=== PATIENT | female | born 1935 | race Caucasian/White ===

== ENCOUNTER 2021-02-10 21:32 | Inpatient (IN) | payer OTHER, MEDICARE ==
[~2021-02-10] VITALS: Ht 165.1 cm; Wt 108.6 kg
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
[2021-02-10 21:45] VITALS: BP 115/58
[2021-02-10 22:04] LABS: ABSOLUTE NEUTROPHILS 13.8 thou/uL (1.4-8.2); BASOPHILS 0.8 % (0.0-2.0); EOSINOPHILS 1.3 % (0.0-3.0); HEMATOCRIT 35.2 % (37.0-47.0); HEMOGLOBIN 11.2 gm/dL (12.0-15.0); LYMPHOCYTES 5.4 % (24.0-44.0); MCH 27.1 pg (26.0-34.0); MCHC 31.9 g/dL (28.0-37.0); MCV 84.7 fL (80.0-100.0); MONOCYTES 7.9 % (1.0-8.0); PLATELET COUNT 444 thou/uL (150-400); POLYS 84.6 % (36.0-66.0); RBC 4.16 mil/uL (4.20-5.00); RDW 15.3 % (10.5-14.5); WBC 16.3 thou/uL (4.0-11.0)
[2021-02-10 22:21] LABS: CALCIUM 9.2 mg/dL (8.5-10.1); CREATININE 2.3 mg/dL (0.6-1.0); POTASSIUM 4.5 mmol/L (3.5-5.1)
[2021-02-10 22:27] LABS: ALBUMIN 2.1 g/dL (3.4-5.0); MAGNESIUM 2.3 mg/dL (1.8-2.4); TOTAL BILIRUBIN 0.3 mg/dL (0.2-1.0); TOTAL PROTEIN 7.3 g/dL (6.4-8.2)
[2021-02-11] MEDS ORDERED: NEUPRO1 EACH TRANSDERM (00:22)
[2021-02-11] MEDS ORDERED: ROPINIROLE HCL0.5 MG PO (00:23)
[2021-02-11] MEDS ORDERED: RESTORIL15 M1 PO (00:23)
[2021-02-11] MEDS ORDERED: VALSARTAN40 MG PO (00:24)
--- NOTE | 2021-02-11 06:08 | NUR ---
LAB IN ROOM TO DRAW BLOOD RN TURNED OFF PUMP. WHEN RN WHEN TO REASSES PT NOTED SKIN AROUND AREA OF LAB STICK TO BE RED HARD AND WHEN GAUZE REMOVED SITE IS LEAKING. IV FLUIDS IN DISTAL ARM STOPPED AND COMPRESSIVE DRESSING PLACED. WILL MONITOR ARM.
[2021-02-11 06:48] LABS: HEMATOCRIT 31.9 % (37.0-47.0); HEMOGLOBIN 10.2 gm/dL (12.0-15.0); MCH 27.6 pg (26.0-34.0); MCV 86.2 fL (80.0-100.0); RBC 3.7 mil/uL (4.20-5.00); RDW 15.6 % (10.5-14.5)
[2021-02-11 06:50] LABS: CREATININE 2.1 mg/dL (0.6-1.0); POTASSIUM 4.1 mmol/L (3.5-5.1)
--- NOTE | 2021-02-11 07:10 | EKG ---
[address] [place] [address] ELECTROCARDIOGRAM REPORT Name: MIGUEL LINN Room #: 170-3 ADM IN M.R.#: [id number] Admission: 02/11/21 Attend Phys: Antony Anaya MD Discharge: Date of : 36 Report #: [id number] 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 : 1935 Requested By: Jayant Rowe Order Number: [id number] MD: Mahendra Wilson Measurements Intervals [place] Rate: 105 P: DE: QRS: -21 QRSD: 173 T: 36 QT: 325 QTc: 430 Interpretive Statements Artifact Extreme tachycardia with wide complex, no further rhythm analysis attempted No previous ECG available for comparison Electronically Signed On 02-11-2021 7:10:30 CDT by Mahendra Wilson [email or web address] <ELECTRONICALLY SIGNED> By: Mahendra Wilson MD, [facility] 02/11/21 0710 2219 2219 Mahendra Wilson MD, FACC /EPI
[2021-02-11 13:27] LABS: URINE BILIRUBIN NEGATIVE (Negative); URINE BLOOD NEGATIVE (Negative); URINE CLARITY CLEAR; URINE COLOR YELLOW; URINE GLUCOSE-RANDOM* NEGATIVE (Negative); URINE KETONES NEGATIVE (Negative); URINE NITRITE-REFLEX NEGATIVE (Negative); URINE PROTEIN (DIPSTICK) NEGATIVE (Negative); URINE UROBILINOGEN 0.2 E.U./dl (0.2-1.0)
[2021-02-11 13:28] LABS: URINE LEUKOCYTES-REFLEX 1+ (Negative)
[2021-02-11 13:42] LABS: MUCUS 4-6 Moderate strn/LPF (None Seen); SQUAMOUS 4-10 Moderate /LPF (0-3); WBC CLUMPS Few (None Seen)
[2021-02-11 13:43] LABS: CASTS None Seen /LPF (None Seen); URINE RBC 0-2 Rare /HPF (0-2); URINE WBC-REFLEX 6-15 Few /HPF (0-5)
[2021-02-11 13:44] LABS: CRYSTALS None Seen /LPF (None Seen)
[2021-02-11 14:00] VITALS: BP 80/50
[2021-02-11 17:34] VITALS: BP 108/58
[2021-02-11 18:15] VITALS: BP 97/46
[2021-02-11 19:48] VITALS: BP 93/39
--- NOTE | 2021-02-11 22:30 | NUR ---
Pt. was brought up from the emergency room around 1800. She is currently awake up in the bed watching television. Admission assessment and history is completed. She does have a large coccyx wound (see poc and picture in chart). Pt. offers no c/o pain. Turned and repostioned. Bed alarm is on.
--- NOTE | 2021-02-12 05:07 | NUR ---
Pt. rested quietly at intervals during the night when checked on during frequent rounds. No loose stools during the shift. She offers no c/o pain. Bed alarm is on.
[2021-02-12 05:40] VITALS: BP 115/62
--- NOTE | 2021-02-12 07:04 | EKG ---
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 : 1935 Requested By: Robi Jorgensen Order Number: [id number] MD: Mahendra Wilson Measurements Intervals [place] Rate: 106 P: DE: QRS: 17 QRSD: 165 T: 19 QT: 322 QTc: 428 Interpretive Statements Artifacg, suspect Atrial fibrillation Paired ventricular premature complexes Probable left ventricular hypertrophy Baseline wander in lead(s) I,III,aVR,aVL,V2 No previous ECG available for comparison Electronically Signed On 02-12-2021 7:04:14 CDT by Mahendra Wilson [email or web address] <ELECTRONICALLY SIGNED> By: Mahendra Wilson MD, [facility] 02/12/21703 10 10 Mahendra Wilson MD, [facility] /EPI
[2021-02-12 07:18] VITALS: BP 119/56
[2021-02-12 11:56] VITALS: BP 94/54
--- NOTE | 2021-02-12 13:37 | NUR ---
PT ADMITTED RELATED TO DIARRHEA AND SEPSIS. CM REVIEWED CHART AND SPOKE WITH CARE TEAM. CM MET WITH PT AT BEDSIDE THIS DAY. PT APPEARED TO BE A&O X4. CM ROLE INTRODUCED. PT INDICATED THAT SHE RESIDES AT [facility]. PT INDICATED THAT SHE USES A WC FOR MOBILITY AND HAD BEEN ABLE TO TRANSFER HER SELF UP UNTIL 2-3 DAYS PRIOR TO ADMISSION. PT INDICATED NO HH OR SKILLED HX. PT INDICATED THAT SHE SLEEPS IN HER RECLINER. PT'S DTR JEANETH IS HER CONTACT. CM FOLLOWING REGARDING DC PLANNING. CARE TEAM INDICATED THAT PT WILL BE HERE OVER WEEKEND. PT ON IV VANC/ZOSYN/FLAGYL.
[2021-02-12 14:25] VITALS: BP 116/76
[2021-02-12 16:55] VITALS: BP 113/64
--- NOTE | 2021-02-12 18:10 | NUR ---
ASSUMED CARE OF PATIENT AT SHIFT CHANGE. ASSESSMENT CHARTED. MEDICATIONS ADMINISTERED PER EMAR. VSS. PATIENT IS ALERT AND ORIENTED BUT IRRITABLE. C/O PAIN IN LOWER EXTREMITIES; STATES SHE NEEDS TO TAKE HER RLS MEDICATION. PROVIDER AWARE AND PUT IN ORDERS ACCORDINGLY. WOUND CARE PROVIDERS ROUNDED ON THIS PATIENT AND STARTED ORDERS; WOUND CARE COMPLETED. ONETIME DOSE OF PAIN SHOT ADMINISTERED PLUS PRN Q4 HOUR DOSE ADMINISTERED W NO RELIEF NOTED PATIENT CONTINUES TO CRY OUT IN PAIN. PROVIDER NOTIFIED. PATIENT APPEARING TO HAVE AN ANXIETY ATTACK NEAR END OF SHIFT; COMFORTED BY THERAPEUTIC TOUCH AND REASSURANCE. PATIENT BEING REPOSITIONED EVERY 2 HOURS TOLERATED. PRAFO BOOTS ORDERED; ON CORI MATTRESS. HEELS ELEVATED. WILL CONTINUE TO MONITOR PATIENT
[2021-02-12 19:42] VITALS: BP 107/46
--- NOTE | 2021-02-13 03:55 | NUR ---
PT IS ALERT AND ORIENTED. BEEN CALM AND COOPEARTIVE ALLL THRO NOC. SLEEPING ON AND OFF. REFUSED THE SLEEPING PILL. PT DENIES PAIN. REPOSITIONING PROVIDED, DRESSING CHANGE TO BUTTOCK WOUND COMPLTED.PT IS AFEBRILE, CONTINUES ON IV ABTS. PT IS COMFORTABLE ON /NC.NO COUGH NOTED. DRINKING WELL. GIANG WITH GOOD U/O-LIGHT YELLOW.CALLS WITH NEEDS.
[2021-02-13 07:25] VITALS: BP 99/54
[2021-02-13 09:09] LABS: BASOPHILS 1.3 % (0.0-2.0); EOSINOPHILS 4.3 % (0.0-3.0); HEMATOCRIT 31.3 % (37.0-47.0); HEMOGLOBIN 10.2 gm/dL (12.0-15.0); LYMPHOCYTES 10.9 % (24.0-44.0); MCHC 32.6 g/dL (28.0-37.0); MCV 85.9 fL (80.0-100.0); MONOCYTES 9.7 % (1.0-8.0); PLATELET COUNT 361 thou/uL (150-400); POLYS 73.8 % (36.0-66.0); RBC 3.64 mil/uL (4.20-5.00); RDW 16.1 % (10.5-14.5); WBC 10.9 thou/uL (4.0-11.0)
[2021-02-13 09:23] LABS: ALBUMIN 1.5 g/dL (3.4-5.0); CALCIUM 7.4 mg/dL (8.5-10.1); CREATININE 1.7 mg/dL (0.6-1.0); POTASSIUM 4.2 mmol/L (3.5-5.1); TOTAL BILIRUBIN 0.3 mg/dL (0.2-1.0); TOTAL PROTEIN 5.8 g/dL (6.4-8.2)
--- NOTE | 2021-02-13 10:57 | NUR ---
Assumed pt care at 7am.Pt in bed sleeping at the beginning of the shift but woke up for am care and breakfast around 0830am.Assessment completed.vss.Pt c/o constipation and requested for stool softner.Rn told pt she has to wait till noon and if no bm,Dr will be notify.Assisted with tray setup.Fair appetite.Pt has moderate black stool this morning.Pericare and complete bed bath given.Dr Dumont here,order noted. Repositioned in bed for comfort.Dsg change to coccyx as ordered.Will continue to monitor.
[2021-02-13 15:59] VITALS: BP 101/64
[2021-02-13 19:44] VITALS: BP 129/59
--- NOTE | 2021-02-14 02:36 | NUR ---
PT CARE ASSUMED WITH PT IN BED WATCHING TV AT 1900.PT IS A/O X4.PT IS MAX ASSIST AND Q2 TURN.PT HAS A STAGE 3 SACRAL DECUB AND BID WOUND DRESSING DONE WITH WET TO DRY DRESSING WITH PACKING. .IV ACCESS ON RT FA WITH NS AT 125CC/HR.PT HAS A GIANG CATHETER IN PLACE PATTERN.BARRIER CREAM APPLIED TO PERINEAL AREA.PT IS ON 2L O2 VIA NC.PT TAKE MEDS WHOLE WITH NO ISSUES.WILL CONTINUE TO MONITOR
[2021-02-14 07:03] VITALS: BP 119/60
--- NOTE | 2021-02-14 14:33 | NUR ---
ASSUMED CARE OF THE PT AT 0700 THIS MORNING. PT IS ADMITTED FOR DECUB WOUND TO COCCYX AREA. WOUND TUNNELD APPROX 2-2.5 INCHES WITH ESCAR. TX OF KERLEX WET TO DRY WITH DAKENS AND COVERED WITH ABD PAD. PT HAS HX OF DIARRHEA AND SOILS THE DRESSING. DRESSING WAS CHANGED AT 0900 AND 1143 THIS MORNING. PT HAS CLEAR LUNG SOUNDS IN ALL ENRIQUEZ, A/OX4, EYES PERRLA, ABD OBESE, SOFT, NONTENDER WITH ACTIVE BOWEL SOUNDS IN ALL QUADS. CR<3SECX4, DISTAL PULSES PRESENT X4, IV IN FA, 2OGA WITH NS 125ML/HR. IV INFILTRATED AND NEW IV INSERTED ABOVE THE OLD ONE IN RIGHT FA. ASSESSMENT AND ONGOING ASSESSMENTS OTHERWISE UNREMARKABLE.
[2021-02-14 15:24] VITALS: BP 125/63
--- NOTE | 2021-02-14 17:47 | NUR ---
Agree with LORI Rosenbaum's assessment.
[2021-02-14 20:03] VITALS: BP 127/74
--- NOTE | 2021-02-15 02:12 | NUR ---
PT CARE ASSUMED WITH PT IN BED WATCHING TV.PT IS A/O X4.PT IS MAX ASSIST.PT HAS A DECUB STAGE 3 ON SACRAL AREA DRESSING WET/DRY .PT NPO FROM MIDNIGHT FOR DEBRIDEMENT THIS TODAY.IV ACCESS ON RT FA WITH NS AT 75CC/HR.PT IS ON 2L OF O2 VIA NC.WILL CONTINUE TO MONITOR PER POC
[2021-02-15 05:22] VITALS: BP 138/71
[2021-02-15 05:37] LABS: HEMATOCRIT 31.1 % (37.0-47.0); HEMOGLOBIN 9.8 gm/dL (12.0-15.0); MCH 27.1 pg (26.0-34.0); MCHC 31.7 g/dL (28.0-37.0); MCV 85.7 fL (80.0-100.0); RBC 3.63 mil/uL (4.20-5.00); RDW 16.4 % (10.5-14.5); WBC 11.3 thou/uL (4.0-11.0)
[2021-02-15 05:51] LABS: CALCIUM 7.3 mg/dL (8.5-10.1); CREATININE 1.2 mg/dL (0.6-1.0); MAGNESIUM 1.7 mg/dL (1.8-2.4); POTASSIUM 4.1 mmol/L (3.5-5.1)
[2021-02-15 07:24] VITALS: BP 126/67
[2021-02-15 07:46] LABS: APTT 29.9 Seconds (24.5-32.8); INR 1.08; PROTIME 11.7 Seconds (9.3-11.4)
--- NOTE | 2021-02-15 11:20 | NUR ---
PT HAVING AN I&D THIS DAY. CARE TEAM INDICATING THAT PT WILL LIKELY NEED SKILLED POST ACUTE CARE STAY ONCE MEDICALLY STABLE. OF RIGHT NOW PT IS BPCI. CM TO PROVIDE LIST FOR HER TO REVIEW. CM FOLLOWING REGARDING DC PLANNING.
[2021-02-15 13:15] VITALS: BP 142/83
[2021-02-15 14:23] VITALS: BP 130/72
[2021-02-15 15:05] VITALS: BP 128/68
--- NOTE | 2021-02-15 15:21 | NUR ---
ASSESSMENT CHARTED. PT ALERT AND ORIENTED. VSS. HAD I&D OF SACRAL DECUB. SURGICAL INCISION INTACT. IV ABX GIVEN ORDERED. NO CONCERNS AT THIS TIME. PT PROGRESSING WELL TOWARDS DISCHARGE GOAL.
[2021-02-15 20:16] VITALS: BP 116/57
--- NOTE | 2021-02-16 05:03 | NUR ---
Assumed pt care at 1900. A/OX4, VSS. Pt denies pain on assessment. Pt is incontinent of bowel,small amount/loose,got on surgical dsg. Dressing changed and pt tolorated wound care. Pt refuses to be repositioned side to side even though she verbalizes understanding the importance once it's explained to her why she needs to be repositioned. Hdz patent to DD with yellow urine. ST/SR w/PACs. Max assist with cares. Fall precautions in place,resting quietly at this time,will continue to monitor pt.
[2021-02-16 07:10] VITALS: BP 110/56
--- NOTE | 2021-02-16 11:22 | NUR ---
PT IS POD#1 FROM I&D. PT HAD BEEN ACCEPTED FOR SKILLED POST ACUTE CARE STAY AT [facility]. PT AND DTR AWARE. CM FOLLOWING WAITING ON ID TO INDICATED ABX NEEDS.
[2021-02-16 15:00] VITALS: BP 127/66
--- NOTE | 2021-02-16 15:28 | NUR ---
ASSUMED CARE OF PATIENT AT SHIFT CHANGE; 0700. ASSESSMENT CHARTED. MEDICATIONS ADMINISTERED PER EMAR. VSS. PATIENT IS A&OX4 AND ABLE TO MAKE NEEDS KNOWN. C/O PAIN WHEN WOUND CARE IS PERFORMED. PRN PO ANALGESIC ADMINISTERED. PROVIDER SAW PATIENT; FECAL MGMT SYSTEM QUESTIONED BUT ULTIMATELY DECIDED AGAINST. PATIENT EDUCATED ABOUT TRYING TO GET UP WITH PT/OT TO AVOID HAVING COLOSTOMY PROCEDURE. PATIENT VOICES ANXIETY; PROVIDER NOTIFED AND ORDERED ANXIETY MEDICATION TID. PRAFO BOOTS ON PATIENT HOWEVER SHE REFUSED TO LEAVE THEM ON DUE TO "DISCOMFORT". ON CORI MATTRESS AND Q2 TURNING PATIENT TOLERATING. FREQUENT CHECKS ON PATIENT. ENCOURAGED TO FEED DUE TO POOR APPETITE; ON CALORIE COUNT. WILL CONTINUE TO MONITOR AND FOLLOW PLAN OF CARE
[2021-02-16 19:23] VITALS: BP 114/49
--- NOTE | 2021-02-17 04:46 | NUR ---
Assumed pt care at 1900. A/OX4,VSS. Pt denies pain on assessment. Declined wound care stating it had been done twice already. Also refuses to be repositioned nad reports being comfortable on her back,refused heel protectors as well;heels elevated on a pillow. Hdz patent to DD with yellow urine. IVF infusing via RFA w/o any problems. Fall precautions in place,will continue to monitor pt.
[2021-02-17 08:00] VITALS: BP 110/96
[2021-02-17 09:00] LABS: HEMATOCRIT 33.9 % (37.0-47.0); HEMOGLOBIN 10.9 gm/dL (12.0-15.0); MCH 27.7 pg (26.0-34.0); MCHC 32.1 g/dL (28.0-37.0); MCV 86.3 fL (80.0-100.0); RBC 3.93 mil/uL (4.20-5.00); RDW 16.5 % (10.5-14.5); WBC 13.8 thou/uL (4.0-11.0)
--- NOTE | 2021-02-17 09:26 | NUR ---
Day 1 calorie count: based on 2 meals of recorded intake and pt met 58% of nutrition needs. Drinking most of ensure supplements. Food preferences are offered.
[2021-02-17 09:28] LABS: ALBUMIN 1.7 g/dL (3.4-5.0); CALCIUM 8.1 mg/dL (8.5-10.1); CREATININE 1.2 mg/dL (0.6-1.0); MAGNESIUM 1.7 mg/dL (1.8-2.4); POTASSIUM 4.4 mmol/L (3.5-5.1); TOTAL BILIRUBIN 0.2 mg/dL (0.2-1.0); TOTAL PROTEIN 6.2 g/dL (6.4-8.2)
--- NOTE | 2021-02-17 10:17 | NUR ---
WOUND CARE F/U; FOLLOWED UP WITH THIS PATIENT RE; RISK OF HEEL PRESSURE INJURY. THE PATIENT INFORMED ME THAT SHE REFUSED TO WEAR THE PARFO BOOTS. I ATTEMPTED TO ENOURAGE THE USE OF THE BOOTS WITH RATIONALE. SHE STILL REFUSED. I ENCOURAGED HER TO ALLOW PILLOWS TO FLOAT HEELS. SHE AGREED. DISCUSSED WITH STAFF
--- NOTE | 2021-02-17 12:01 | NUR ---
CARE TEAM INDICATING THAT PT AND DTR ARE AGREEABLE TO PEG TUBE, DIVERTING COLOSTOMY, AND COLONOSCOPY AT THIS TIME. HOSPITALIST SPOKE WITH GI AND SURGERY TEAM REGARDING SCHEDULING OF PROCEDURES. CM UPDATED MARYJANE BRUCE. CM FOLLOWING REGARDING DC PLANNING.
--- NOTE | 2021-02-17 18:06 | PATH ---
[facility] [address] [place] [address] PATHOLOGY RPT PROCEDURE Name: TSACI FLANNERY Room #: 450-P ADM IN M.R.#: [id number] Admission: 02/11/21 Date of : 37 Discharge: Report #: [id number] Path Case #: [id number] [facility] Accession Number: [id number] . 01 Material submitted: . sacrum - SACRAL DECUBITUS SOFT TISSUE . 01 Clinical history: . SEPSIS,DIARRHEA INCISION AND DRAINAGE SACRAL WOUND POST-OP DIAGNOSIS SAME PRE-OP . 02 Diagnosis: Sacral decubitus soft tissue, debridement: - Fragments of chondro-osseous tissue with acute inflammation. - Fragments of soft tissue with marked acute inflammation and fibrinoid degeneration. ([facility]; 02/17/2021) QMS 02/17/2021 1516 Local . 02 Electronically signed: . Marcia Rebolledo MD, Pathologist NPI- [id number] . 01 Gross description: . Received in formalin labeled "Staci Flannery and sacral decubitus soft tissue". Received are 4 firm white fibrous/hemorrhagic soft tissue fragments admixed with bone measuring in aggregate 2.0 x 2.0 x 0.6 cm and weighing 1 g. Sectioning reveals firm white fibrous cut surfaces and spongy to dense bone. Specimen is representatively submitted in cassette A1 (after decalcification).([facility]; 02/15/2021) J/[facility] 02/17/2021 [facility]5 Local . 02 Pathologist provided ICD-10: M79.89 . 02 CPT . 138723, [id number] Specimen Comment: A courtesy copy of this report has been sent to [phone], [phone] Specimen Comment: [phone], Specimen Comment: Report sent to ,DR CLEMENTE / DR MCINTOSH Performed at: [address] [facility], [place] [address] MD Manoj Pastor MD Phone: [phone] Performed at: 02 [place] [address] PATHOLOGY RPT PROCEDURE Name: STACI FLANNERY Room #: 450-P ADM IN M.R.#: [id number] Admission: 02/11/21 Date of : 37 Discharge: Report #: [id number] Path Case #: [id number] [facility] [address], [place], [place] [id number] MD Marcia Rebolledo MD Phone: [phone]
--- NOTE | 2021-02-17 18:24 | NUR ---
Assumed pt care at 7am.Pt in bed most of the time today very anxious and sometimes tearful.Emotional support given.Assessment completed and vss.Dr Culver here and order noted.Dr William rounded on pt.Discussed the plan option for anxiety.Family here to visit.Updates given.Pt has more than 4 loose stool this shift but Dr Culver ordered rectal tube.It was placed at 1700 prior to starting bowel prep.Oral pain med given at dinner time.Drsg change done to coccyx wound as ordered.Pt in bed at present eating dinner.Will continue to monitor.
[2021-02-17 19:11] VITALS: BP 123/59
--- NOTE | 2021-02-18 04:43 | NUR ---
Assumed pt care at 1900. A/OX4,VSS,anxious about GI procedure. Pt completed bowel prep with few prompts.Wound care done as ordered pt tolorated well. Fecal management in place,patent with large liquid brown output. Hdz patent to DD with yellow urine. Pt has been NPO since midnight.Resting quietly w/o distress noted,will continue to monitor pt. Fall precautions in place.
[2021-02-18 07:54] VITALS: BP 138/89
[2021-02-18 08:01] LABS: HEMATOCRIT 28.8 % (37.0-47.0); HEMOGLOBIN 9.4 gm/dL (12.0-15.0); MCH 27.6 pg (26.0-34.0); MCHC 32.6 g/dL (28.0-37.0); MCV 84.6 fL (80.0-100.0); RBC 3.41 mil/uL (4.20-5.00); RDW 16.3 % (10.5-14.5); WBC 11.6 thou/uL (4.0-11.0)
[2021-02-18 08:06] LABS: CALCIUM 7.6 mg/dL (8.5-10.1); CREATININE 1.2 mg/dL (0.6-1.0); MAGNESIUM 1.5 mg/dL (1.8-2.4); POTASSIUM 3.9 mmol/L (3.5-5.1)
--- NOTE | 2021-02-18 08:14 | NUR ---
Pt not eating adequately to meet 100% of needs with large pressure ulcer. Note plans for PEG/diverting colostomy. Will follow up again tomorrow to make TF recommendations.
[2021-02-18 11:47] VITALS: BP 144/74
--- NOTE | 2021-02-18 14:57 | NUR ---
PT HAD COLONOSCOPY TODAY. PT IS SCHEDULED FOR COLOSTOMY AND PEG TOMORROW AT 9:00 TOMORROW. CM FOLLOWING REGARDING DC PLANNING.
[2021-02-18 15:17] VITALS: BP 136/76
--- NOTE | 2021-02-18 15:50 | NUR ---
ASSUMED CARE OF PATIENT AT SHIFT NAGE. ASSESSMENT CHARTED. MEDICATIONS HELD THIS A.M. FOR COLONOSCOPY. VSS. PATIENT IS A&OX4 AND MAKES NEEDS KNOWN. PATIENT DENIED PAIN THIS A.M. HOWEVER VOICED ANXIETY REGARDING RECTAL TUBE, PROCEDURE TODAY AND SURGERIES TOMORROW. PATIENT WAS ADMINISTERED A ONETIME DOSE OF ATIVAN BUT VOICED NO RELIEF OF ANXIETY. PATIENT LEFT FOR COLONOSCOPY AT 1225 AND RETURNED AT 1505. PATIENT VOICED SEVERE ANXIETY AND DISCOMFORT WITHOUT PAIN. PATIENT REPOSITIONED. RECTAL TUBE IS OUT; NO BM YET. ON CLEAR LIQUID DIET CURRENTLY AND TOLERATING PO INTAKE WELL. WHEN PATIENT ARRIVED FROM GI; COUGH WITH SOME PRODUCTION PRESENT. SUCTION ON STANDBY HOWEVER PATIENT IS USING TISSUES. PATIENT BEING FREQUENTLY CHECKED ON AND OFFERED REPOSITIONING Q2HRS TOLERATED. WILL CONTINUE TO MONITOR AND FOLLOW PLAN OF CARE
[2021-02-18 19:30] VITALS: BP 135/45
[2021-02-19] VITALS (8 sets, daily range): BP systolic 117–137; BP diastolic 60–92
--- NOTE | 2021-02-19 06:00 | NUR ---
Pt. rested quietly during the night when checked on during frequent rounds. She offers no c/o pain or discomfort. Pt. does refuse to be turned and repositioned at times. She did refuse her treatment to her coccyx last pm. This am pt. agreed to have her dressing changed.
--- NOTE | 2021-02-19 08:08 | NUR ---
Once PEG placed and ready to use, recommend Pivot 1.5 to start 30ml/hr and progress to goal of 55ml/hr. Continue to allow pt to eat/drink po as tolerated.
--- NOTE | 2021-02-19 10:34 | NUR ---
Received awake on bed. On nothing per orem- pt informed and aware; mouth swabs provided. On telemetry; no complains and signs of chest pain, crushing sensation and heaviness. Assisted in ADLs. Vital signs stable. On O2 at 2lpm via nasal cannula. With diggs in place- output measured and recorded accordingly; draining well. With sacral pressure ulcer; dressing C/D/I- changed by Night RN this AM as reported. Pt turned on her sides; may refuse at times. With NS at 75cc/hr, infusing well at R hand. Pt scheduled to have colostomy creating and PEG placement today- consent to be signed; contact number of pt's daughter given to pre-op nurse. Pt brought to OR at approx 9am.
--- NOTE | 2021-02-19 11:24 | NUR ---
PT HAVING DIVERTING COLOSTOMY AND PEG THIS DAY. CARE TEAM INDCIATED THAT PT WILL LIKELY BE HERE OVER WEEKEND AND WILL NEED SNF AT THE BEGINING OF NEXT WEEK. PT WILL NEED TO BE STARTED ON TUBE FEEDINGS. CM TO SEND CLINICAL UPDATES TO IGNITE POST PROCEDURE.
--- NOTE | 2021-02-19 12:49 | P ---
[facility] [place] [address] PROCEDURE REPORT Name: MIGUEL LINN Room #: 450-P ADM IN M.R.#: [id number] Admission: 02/11/21 Attend Phys: Bryon Culver MD Discharge: Date of : 37 Report #: [id number] THIS REPORT FOR: cc: Derrell Hearn,Linden Carrizales MD ~ DOC #: [id number] cc: Fritz Capellan MD, Bryon Culver MD, MD Linden Carrera MD DATE OF SERVICE: 02/18/2021 PROCEDURE PERFORMED: Colonoscopy with polypectomies and biopsies. HISTORY OF PRESENT ILLNESS: The patient is an 85-year-old female with a history of chronic diarrhea. C. diff was negative recently. She has a significant sacral decubitus ulcer with osteomyelitis, status post debridement. The plan is for a diverting colostomy tomorrow. Unclear when her last colonoscopy was performed. She is anemic. Stools were Hemoccult negative during this admission. She has been started on Colestid. Rectal tube was in place and removed prior to the procedure. This was placed yesterday during prep. DESCRIPTION OF PROCEDURE: The risks and benefits of the procedure were explained to the patient's family, those risks including, but not limited to bleeding, perforation and the risk of sedation. They understood these risks and gave informed consent. Sedation was given using propofol per anesthesia. Next, digital rectal exam was initially performed, which was normal. Obvious large open wound decubitus ulcer near the sacrum was noted with packing. Next, using a standard Olympus colonoscope, the scope was placed in the patient's anus and advanced under direct vision to the cecum. The overall prep was good. In the cecum, there was an 8 mm partially pedunculated polyp. This was removed by snare cautery. Ascending colon, another 1 cm partially pedunculated polyp also removed by snare cautery. In the transverse colon, a total of 3 polyps were noted. These ranged in size from 4-6 mm all were removed by snare cautery. Random colon biopsies were also obtained today to rule out the possibility of microscopic colitis. Multiple diverticula were noted in the sigmoid colon. No evidence of inflammation. In the sigmoid colon, a large 2 cm pedunculated polyp was noted. This was removed in a piecemeal fashion by snare cautery. In the rectum, there were 3 ulcers noted approximately 1-2 cm in size. These appeared to be fairly chronic. I do not think these are from the recent rectal tube as this was just placed yesterday. Multiple biopsies were obtained to rule out the possibility of ischemia. There was no evidence of active bleeding. On retroflexion, small nonbleeding internal hemorrhoids were noted. The scope was then withdrawn and the procedure terminated. The patient tolerated the procedure well. [address] [address] PROCEDURE REPORT Name: KAVEHMIGUEL Room #: 450-P ADM IN M.R.#: [id number] Admission: 02/11/21 Attend Phys: Bryon Culver MD Discharge: Date of : 37 Report #: [id number] IMPRESSION: 1. Multiple colonic polyps as described above. 2. Sigmoid diverticulosis without inflammation. 3. Rectal ulcers appear fairly chronic. No evidence of active bleeding. RECOMMENDATIONS: 1. Await biopsy results. 2. We will leave the rectal tube out at this time. 3. Agree with surgery for diverting colostomy tomorrow. Thank you for allowing me to participate in her care. Linden Gilbert MD CCM/ALEXANDRA <ELECTRONICALLY SIGNED> By: Linden Gilbert MD 02/19/21 1249 1330 1131 Linden Gilbert MD /nt
[2021-02-20 03:15] VITALS: BP 130/67
--- NOTE | 2021-02-20 06:31 | NUR ---
patient had quiet noc started on infusing tube feeding tolerating well no c/o pain or discomfort thru noc. iv infusing w/o difficulties catheter patent.
[2021-02-20 08:13] VITALS: BP 123/59
[2021-02-20 09:54] LABS: HEMATOCRIT 30.7 % (37.0-47.0); HEMOGLOBIN 9.7 gm/dL (12.0-15.0); MCH 28.1 pg (26.0-34.0); MCHC 31.6 g/dL (28.0-37.0); MCV 88.8 fL (80.0-100.0); RBC 3.45 mil/uL (4.20-5.00); RDW 17.2 % (10.5-14.5); WBC 14.5 thou/uL (4.0-11.0)
[2021-02-20 10:02] LABS: CALCIUM 7.4 mg/dL (8.5-10.1); CREATININE 1.2 mg/dL (0.6-1.0); MAGNESIUM 1.9 mg/dL (1.8-2.4); POTASSIUM 4.9 mmol/L (3.5-5.1)
--- NOTE | 2021-02-20 15:12 | NUR ---
ASSUMED CARE OF PATIENT AT SHIFT CHNAGE; 0700. ASSESSMENT CHARTED. MEDS ADMINISTERED PER EMAR; PATIENT STILL ABLE TO TOLERATE PO MEDS, LARGE PILLS ADMINISTERED THROUGH PEG TUBE. PEG TUBE IS ON RUQ; SITE WAS CLEANED AND DRESSING WAS APPLIED. PATIENT HAS A COLOSTOMY ON LUQ; VOICING INTERMITTENT PAIN RADHA. WHEN TOUCHED AND WITH MOVEMENT. PROVIDER NOTIFIED AND REASSURED IT NORMAL FINDINGS WHILE HE WAS AT BEDSIDE. WOUND CARE TO COCCYX/SACRAL AREA DONE THIS A.M. BY DR FERNÁNDEZ. GIANG REMAINS INTACT AND STILL DRAINING YELLOW URINE. PATIENT ON CORI MATTRESS, HAS PRAFO BOOTS ON AND IS OFFERED REPOSITIONED AT LEAST EVERY TWO HOURS ALTHOUGH REFUSES AT TIMES DUE TO PAIN. PAIN WAS RELIEVED PARTIALLY WITH PRN PAIN MEDS; SEE MAR. TUBE FEEDING INFUSING NOW AT 45CC/HR AND WILL BE AT ITS GOAL RATE OF 55CC/HR BY END OF SHIFT. PATIENT VOICED ABDOMINAL FULLNESS THIS AM; TUBE FEEDING WAS HELD FOR 4HRS. RESIDUAL CHECKED W 125/CC. RESUMED AFTER PATIENT DENYING ABDOMINAL PAIN OR DISCOMFORT. ABX REMAIN INFUSING ON R HAND. PATIENT VOICES NO FURTHER NEEDS. CONTINUING FREQUENT MONITORING
[2021-02-20 16:00] VITALS: BP 115/49
[2021-02-20 19:12] VITALS: BP 115/65
[2021-02-21] VITALS (7 sets, daily range): BP systolic 96–168; BP diastolic 41–96
--- NOTE | 2021-02-21 01:05 | NUR ---
ASSESSED AT START OF SHIFT. PT A&OX4. C/O PAIN IN ABD AND GENERALIZED WITH MOVEMENTS. PAIN MEDICATION GIVEN. SMALLER MEDS GIVEN WITH PUDDING AND PT FIONA IT WELL. HUGE PILLS CRUSHED AND GIVEN VIA PEG TUBE. PIVOT 1.5 INFUSING RESIDUAL CHECKED. WATER FLUSHES PROVIDED. SACARAL WOUND DRESSING DONE. PT REPOSITIONED FOR COMFORT. ON 2L OF O2. PRAFO BOOTS ON LISA LOWER EXT. FALL PREC IN PLACE AND CALL LIGHT AT REACH WILL CONT TO MONITOR.
[2021-02-21 04:51] LABS: HEMATOCRIT 29.7 % (37.0-47.0); HEMOGLOBIN 9.4 gm/dL (12.0-15.0); MCHC 31.7 g/dL (28.0-37.0); MCV 88.4 fL (80.0-100.0); RBC 3.36 mil/uL (4.20-5.00); RDW 17.2 % (10.5-14.5); WBC 14.2 thou/uL (4.0-11.0)
[2021-02-21 05:01] LABS: CALCIUM 7.8 mg/dL (8.5-10.1); CREATININE 1.2 mg/dL (0.6-1.0); MAGNESIUM 1.9 mg/dL (1.8-2.4); POTASSIUM 4.4 mmol/L (3.5-5.1)
--- NOTE | 2021-02-21 14:03 | NUR ---
ASSUMED PT CARE AROUND 0715. PT ALERT X ORIENTED X3-4. ON 6L/O2/NC.TELE PATIENT. GIANG IN PLACE. PERIPHERAL BOOTS ON LEG. COLOSTOMY BAG IN PLACE. 3 LAP SITES. DURING SHIFT CHANGE PT VOMITED. RN STOPPED THE PEG TUBE WHICH WAS RUNNING AT 55MLS/HR. PT VOMITED 3-4 TIMES. ZOFRAN GIVEN, VOMITING NOT CONTROLLED. RN LET DR. STACK AND SURGEON NOTIFIED. COMPAZINE WAS GIVEN AND VOMITING LITTLE BIT CONTROLLED. PT STARTED VOMITING WHEN TRIED TO TURN FOR XRAY. O/E CHEST COARSE. FLUIDS NOT INFUSING RIGHT NOW OF DR SAID DONT' RUN IT NOW. HYPOACTIVE BOWEL ,MOVEMENT. STAT EKG DONE. IV RT FOREARM. PT DAUGHTER AT THE BEDSIDE. EKG SHOWS AFIB. PT MOVING TO CCU. WILL CONT TO MONITOR.
--- NOTE | 2021-02-21 18:31 | NUR ---
PT CARE ASSUMED AT 1445. ASSESSMENTS CHARTED. MEDICATIONS CHARTED. RFA IV. LW IV. ATRIAL FIBRILLATION W/ PVC. GIANG. SACRAL WOUND. PRAFO BOOT OF RT FOOT. DIVERTICULITS COLOSTOMY; 3 LAPS. FLUID OVERLOAD. CARDIZEM GTT AT 15. SMALL PILLS WITH WATER. LG PILLS CRUSHED IN PEG TUBE. PEG TUBE TO DRAIN.
[2021-02-22 00:30] VITALS: BP 96/38
--- NOTE | 2021-02-22 01:55 | NUR ---
ASSUMED PT CARE AT CHANGE OF SHIFT, PT IS AWAKE, ALERT AND ORIENTED, MAKES NEEDS KNOWN, PT CONVERTED TO SR WITH HR IN THE 90S, BP SOFT, CARDIZEM TITRATED DOWN TO 5ML/HR, BP RECHECK SOFT IN THE 90S SYSTOLIC, HR IN THE 80S, CARDIZEM GTT TURNED OFF, GENERALIZED EDEMA, COARSE LUNG SOUNDS, MANAGER FINANCIAL SERVICES NOTIFIED, ORDER FOR BNP IN THE AM, DRESSING TO THE SACRAL WOUND CHANGED, NO NEEDS AT THIS TIME, WILL CONTINUE TO MONITOR CLOSELY
[2021-02-22 03:52] LABS: CALCIUM 7.7 mg/dL (8.5-10.1); CREATININE 1.3 mg/dL (0.6-1.0); MAGNESIUM 1.9 mg/dL (1.8-2.4); POTASSIUM 4.5 mmol/L (3.5-5.1)
[2021-02-22 04:07] LABS: HEMATOCRIT 28.1 % (37.0-47.0); HEMOGLOBIN 8.9 gm/dL (12.0-15.0); MCH 27.7 pg (26.0-34.0); MCHC 31.8 g/dL (28.0-37.0); MCV 87.2 fL (80.0-100.0); RBC 3.22 mil/uL (4.20-5.00); RDW 17.3 % (10.5-14.5); WBC 27.2 thou/uL (4.0-11.0)
[2021-02-22 04:45] VITALS: BP 107/54
--- NOTE | 2021-02-22 07:06 | EKG ---
[address] [address] ELECTROCARDIOGRAM REPORT Name: MIGUEL LINN Room #: 218-P ADM IN M.R.#: [id number] Admission: 02/11/21 Attend Phys: Bryon Culver MD Discharge: Date of : 37 Report #: [id number] [facility] Test Date: 2021-02-21 Test Time: 12:16:42 Pat Name: MIGUEL LINN Department: Room: 218 Gender: F Environmental Health Physician: LIZBETH : 1935 Requested By: Raghu Marques Order Number: [id number] MD: Mahendra Wilson Measurements Intervals [place] Rate: 115 P: [place]: QRS: 0 QRSD: 51 T: QT: 397 QTc: 549 Interpretive Statements Atrial fibrillation Low voltage, precordial leads Nonspecific T abnormalities, diffuse leads Prolonged QT interval Compared to ECG 02/10/2021 22:19:27 Low QRS voltage now present T-wave abnormality now present Prolonged QT interval now present Electronically Signed On 02-22-2021 7:06:18 CDT by Mahendra Wilson [email or web address] <ELECTRONICALLY SIGNED> By: Mahendra Wilson MD, [facility] 02/22/21 0706 1216 1216 Mahendra Wilson MD, [facility] /EPI
[2021-02-22 08:00] VITALS: BP 106/52
--- NOTE | 2021-02-22 09:07 | NUR ---
ASSUMED PT CARE AT 0700. AT 0840, ASSESSMENT PERFORMED CHARTED. VSS. COLOSTOMY NURSE IN ROOM CHANGING COLOSTOMY. PT DIET ORDER CHANGED TO NPO PER DR STACK DUE TO POST SURGICAL ILEOUS. PT NOTIFIED AND AGREED, STATING SHE ISN'T HUNGRY. PT DID HAVE ACTIVE BOWEL SOUNDS HOWEVER NO STOOL IN COLOSTOMY. PTS LUNG SOUNDS REMAIN COURSE, PT STATES SHE IS UNABLE TO COUGH UP ANYTHING DESPITE A GOOD COUGH EFFORT. WILL CONTINUE TO MONITOR AND FOLLOW POC.
--- NOTE | 2021-02-22 09:23 | NUR ---
OSTOMY CARE; AWAKE, ALERT, SOME FORGETFULNESS SEEN, LOOSE EDGES NOTED W/ POUCH, CHANGED USING 2 PIECE SYSTEM CUT TO FIT W/ ADAPT RING UNDER WAFER, STOMA BEEFY RED, BUDDED, VIABLE, STOMA BRIDGE SUTURED IN PLACE, SCANT LOOSE BROWN STOOL NOTED WHEN CHANGING APPLIANCE, RECEPTIVE TO EDUCATION, INFO AND SUPPLIES LEFT AT BS, WILL CONT TO FOLLOW RECOMMNDATIONS; CHANGE POUCH Q 3-4 DAYS AND PRN, EMTPY PRN ASSEMBLY ROOM SUPERVISOR AWARE
[2021-02-22 11:00] LABS: ALBUMIN 1.3 g/dL (3.4-5.0); DIRECT BILIRUBIN < 0.1 mg/dL (<0.1-0.2); LIPASE 30 U/L (73-393); SGOT 13 U/L (15-37); SGPT 10 U/L (14-59); TOTAL BILIRUBIN 0.3 mg/dL (0.2-1.0); TOTAL PROTEIN 5.1 g/dL (6.4-8.2)
--- NOTE | 2021-02-22 11:48 | 2DMMODE ---
[place] [address] 2 D/M-MODE ECHOCARDIOGRAM Name: MIGUEL LINN Room #: 218-P ADM IN M.R.#: [id number] Admission: 02/11/21 Attend Phys: Bryon Culver MD Discharge: Date of : 37 Report #: [id number] THIS REPORT FOR: cc: Derrell Hearn,Rashaun Hayden MD ~ APPROVED REPORT Study performed: 02/22/2021 10:40:44 EXAM: Comprehensive 2D, Doppler, and color-flow Echocardiogram Patient Location: Bedside Status: routine BSA: 2.06 HR: 83 bpm BP: 107/54 mmHg Rhythm: Atrial Fibrillation Other Information Study Quality: Good Indications Elevated BP Hx: Afib. 2D Dimensions RVDd: 39.89 mm IVSd: 8.76 (7-11mm) LVOT Diam: 19.55 (18-24mm) LVDd: 44.59 mm PWd: 8.63 (7-11mm) Ascending Ao: 36.31 (22-36mm) LVDs: 26.62 (25-40mm) Left Atrium: 39.73 (27-40mm) Aortic Root: 30.42 mm Volumes Left Atrial Volume (Systole) Single Plane 4CH: 72.96 mL Single Plane 2CH: 71.18 mL LA ESV Index: 37.00 mL/m2 Aortic Valve AoV Peak Tru.: 1.60 m/s AO Peak Gr.: 10.21 mmHg LVOT Max P.38 mmHg LVOT Max V: 1.05 m/s [address] [address] 2 D/M-MODE ECHOCARDIOGRAM Name: MIGUEL LINN Room #: 218-P ADM IN M.R.#: [id number] Admission: 02/11/21 Attend Phys: Bryon Culver MD Discharge: Date of : 37 Report #: [id number] ERICA Vmax: 1.97 cm2 Pulmonary Valve PV Peak Tru.: 1.03 m/s PV Peak Gr.: 4.24 mmHg Tricuspid Valve TR Peak Tru.: 3.78 m/s RAP Estimate: 10.00 mmHg TR Peak Gr.: 57.21 mmHg PA Pressure: 67.00 mmHg Left Ventricle The left ventricle is normal size. There is normal LV segmental wall motion. There is normal left ventricular wall thickness. The left ventricular systolic function is normal. LVEF is 50-55%. The diastolic function is abnormal. Right Ventricle Right ventricle is dilated. The right ventricular systolic function is normal. Atria Left atrium is dilated. Right atrium is dilated. Aortic Valve Aortic valve is calcified. No aortic regurgitation is present. There is no aortic valvular stenosis. Mitral Valve The mitral valve is normal in structure. Trace to mild mitral regurgitation. No evidence of mitral valve stenosis. Tricuspid Valve The tricuspid valve is normal in structure. Moderate to severe tricuspid regurgitation. Estimated PAP=67mmHg Pulmonic Valve The pulmonary valve is normal in structure. There is no pulmonic valvular regurgitation. Great Vessels The aortic root is normal in size. The ascending aorta is normal in size. IVC is dilated and collapses <50% with inspiration. Pericardium There is no pericardial effusion. [address] [place] [address] 2 D/M-MODE ECHOCARDIOGRAM Name: [place], [place] Room #: 218- ADM IN M.R.#: [id number] Admission: 02/11/21 Attend Phys: Bryon Culver MD Discharge: Date of : 37 Report #: [id number] <Conclusion> The left ventricle is normal size. LVEF is 50-55%. Right ventricle is dilated. The right ventricular systolic function is normal. Left atrium is dilated. Right atrium is dilated. Aortic valve is calcified. The mitral valve is normal in structure. Trace to mild mitral regurgitation. The tricuspid valve is normal in structure. Moderate to severe tricuspid regurgitation. Estimated PAP=67mmHg The pulmonary valve is normal in structure. There is no pericardial effusion. <ELECTRONICALLY SIGNED> By: Rashaun Persaud MD 02/22/21 1148 1148 1148 Rashaun Persaud MD /INF
[2021-02-22 12:00] VITALS: BP 123/61
--- NOTE | 2021-02-22 15:28 | NUR ---
SACRAL WOUND DRESSING CHANGE. PT TOLERATED PROCEDURE FAIR. PT HELPS ROLL BUT SHOUTS OUT THAT SHE DOESN'T WANT TO DO IT. ASSESSMENT UNCHANGED. VSS. WILL CONTINUE TO MONITOR.
[2021-02-22 16:00] VITALS: BP 164/75
--- NOTE | 2021-02-22 16:20 | NUR ---
UPDATED [facility]. THEY ARE ACCEPTING OF PATIENT FOR POST ACUTE CARE. ADMISSIONS AT [facility] HAS SPOKEN WITH FAMILY. [facility] FOLLOWING.
--- NOTE | 2021-02-22 17:06 | PATH ---
[facility] [place] [address] PATHOLOGY RPT PROCEDURE Name: STACI LINN Room #: 218-P ADM IN M.R.#: [id number] Admission: 02/11/21 Date of : 37 Discharge: Report #: [id number] Path Case #: [id number] [facility] Accession Number: [id number] . 01 Material submitted: . PART A: cecum - CECAL POLYP X1. Modifiers: X1 PART B: colon - ASCENDING COLON POLYP. Modifiers: ascending PART C: colon - TRANSVERSE COLON POLYP X3. Modifiers: transverse, X3 PART D: colon - RANDOM COLON BIOPSY PART E: sigmoid colon - SIGMOID COLON POLYP PART F: rectum - RECTAL COLON BIOPSY . 01 Clinical history: . SEPSIS, DIARRHEA COLONOSCOPY COLON POLYPS, DIVERTICULOSIS, RECTAL ULCER FOR D- RULE OUT MICROSCOPIC COLITIS . 02 Diagnosis: A. Polyp, cecal polyp, endoscopic biopsy: - Tubular adenoma. - Negative for high grade dysplasia. . B. Polyp, ascending colon polyp, endoscopic biopsy: - Tubular adenoma. - Negative for high grade dysplasia. . C. Polyp x3, transverse colon polyp, endoscopic biopsy: - Tubular adenoma identified in multiple fragments. - Negative for high grade dysplasia. . D. Large intestinal mucosa, random colon, endoscopic biopsy: - Mild to moderate active colitis with focal architectural abnormalities, please see comment. . E. Polyp, sigmoid colon polyp, endoscopic biopsy: - Tubulovillous adenoma. - Negative for high grade dysplasia. - Cauterized base showing unremarkable mucosa. . F. Large intestine, rectal ulcer, endoscopic biopsy: - Mild active colitis with prominent lymphoid aggregates, see comment. - Negative for dysplasia or malignancy. . (IUV:mml; 02/22/2021) [facility] 02/22/2021 1647 Local . [address] [address] PATHOLOGY RPT PROCEDURE Name: KAVEHSTACI Room #: 218-P ADM IN M.R.#: [id number] Admission: 02/11/21 Date of : 37 Discharge: Report #: [id number] Path Case #: [id number] Comment: Examination of the "random colon" biopsy tissue shows markedly expanded lamina propria with a rare crypt abscess as well as architectural abnormalities. Surface epithelial ulceration is not present. Well-formed granulomata, or viral inclusions are not present as well. The "rectal ulcer" biopsy tissue shows mild active colitis along with prominent lymphoid aggregates. Overall, features are suggestive of an inflammatory bowel disease. The differential diagnosis includes focal acute colitis of self-limited etiology, infectious-type of colitis, diverticulitis as well as medication/drug-induced colitis. Please correlate clinically. . (IUV:mml; 02/22/2021) . 02 Electronically signed: . Marcia Rebolledo MD, Pathologist NPI- [id number] . 01 Gross description: . A. The specimen is received in formalin, labeled "Fawmohinder, Staci, cecal polyp" and consist of 1 polypoid fragment of soft fan tissue measuring up to 1.2 cm. Entirely submitted in A1. . B. The specimen is received in formalin, labeled "Fawley, Stcai, ascending colon polyp" and consist of multiple fragments of soft fan tissue measuring up to 0.7 cm. Entirely submitted in B1. . C. The specimen is received in formalin, labeled "Fawley, Staci, transverse colon polyps X3" and consist of 3 fragments soft fan tissue measuring up to 0.4 cm. Entirely submitted in C1. . D. The specimen is received in formalin, labeled Fawmohinder, Staci, "random colon" and consist of 2 fragments soft fan tissue measuring up to 0.5 cm. Entirely submitted in D1. . E. The specimen is received in formalin, labeled "Fawley, Staci, sigmoid colon polyp" and consist of 3 fragments soft fan tissue measuring up to 1.1 cm. Entirely submitted in E1. . F. The specimen is received in formalin, labeled "Fawmohinder, Staci, rectal ulcer" and consist of multiple fragments soft fan tissue measuring up to 0.4 cm. Entirely submitted in F1. ([facility]; 02/19/2021) JONATHAN/JONATHAN 02/22/2021 1632 Local . 02 Pathologist provided ICD-10: D12.0, D12.2, D12.3, K52.9, D12.5 . 02 [facility] . [address] [address] PATHOLOGY RPT PROCEDURE Name: STACI LINN Room #: 218-P ADM IN M.R.#: [id number] Admission: 02/11/21 Date of : 37 Discharge: Report #: [id number] Path Case #: [id number] Specimen Comment: A courtesy copy of this report has been sent to [phone] Specimen Comment: 2009, Specimen Comment: Report sent to , / Performed at: [address] [facility], [place] [id number] MD Manoj Pastor MD Phone: [phone] Performed at: [address] [facility] [id number] MD Marcia Rebolledo MD Phone: [phone]
[2021-02-22 20:15] VITALS: BP 133/61
--- NOTE | 2021-02-23 03:21 | NUR ---
ASSUMED PT CARE AT CHNAGE OF SHIFT, ALERT AND ORIENTED WITH FORGETFULLNESS, ABLE TO VOICE NEEDS, ASSESSMENTS CHARTED, PAIN WITH MOVENENT AND REPOSITIONING, SA/SR ON THE MONITOR, REMAINS NPO, BLOOD SUGAR 67, PMO LEAD NOTIFIED, ORDER FOR I AMPULE OF D50 GIVEN, BS RECECK AT 94, REMAINS ON ABX FOR PNA, DRESSING TO THE COCCYX CHANGED, TOLERATED WELL, REMAINS ON O2 AT 4L, NO ACUTE DISTRESS NOTED, WILL CONTINUE TO MONITOR AND FOLLOW POC
[2021-02-23 04:45] VITALS: BP 118/63
[2021-02-23 04:57] LABS: HEMATOCRIT 27.9 % (37.0-47.0); HEMOGLOBIN 8.7 gm/dL (12.0-15.0); MCH 27.7 pg (26.0-34.0); MCV 89.2 fL (80.0-100.0); RBC 3.13 mil/uL (4.20-5.00); RDW 17.9 % (10.5-14.5); WBC 13.9 thou/uL (4.0-11.0)
[2021-02-23 06:00] LABS: CALCIUM 8.2 mg/dL (8.5-10.1); CREATININE 1.2 mg/dL (0.6-1.0); MAGNESIUM 1.9 mg/dL (1.8-2.4)
[2021-02-23 08:00] VITALS: BP 131/51
--- NOTE | 2021-02-23 10:23 | NUR ---
assumed pt care at 0700. pt resting at this time. assessment performed as charted. vss. dr flores rounded on patient and notified of the amount of stool in colostomy. dr flores okay'd patient to have a full liquid diet and tube feeds restarted at 10ml/hr with a goal rate of 55ml/hr. pt voices relief that she gets to drink water again. vss. will continue to monitor and follow poc.
[2021-02-23 11:38] VITALS: BP 103/55
[2021-02-23 16:00] VITALS: BP 112/57
--- NOTE | 2021-02-23 16:45 | NUR ---
PT WATCHING TV FOR 1600 ASSESSMENT. PT VOICES NO C/O AT THIS TIME. PTS TUBE FEEDING WAS STARTED AT 1300 AT 10ML/HR AND WILL BE TITRATED UP TO 20ML/HR AT 1700 AND WILL CONTINUE Q4H TO GOAL OF 55ML/HR. VSS. WILL CONTINUE TO MONITOR AND FOLLOW POC.
[2021-02-23 20:26] VITALS: BP 126/60
--- NOTE | 2021-02-24 02:08 | NUR ---
ASSUMED PT CARE AT CHANGE OF SHIFT, ALERT AND ORIENTED WITH SOME FORGETFULNESS, SA ON THE MONITOR, DENIES PAIN OR SOB, REMAINS ON 3L NC, VSS, DRESSING TO THE COCCYX WOUND CHANGED TOLERATED WELL, COLOSTOMY CHANGED D/T LEAKING, TF INFUSING AT 30ML/HR, 30CC RESIDUAL, PT HAD 16 BEATS ON NSVT, DENIES PALPITATION, NO NEEDS AT THIS TIME, WILL CONTINUE TO MONITOR CLOSELY AND FOLLOW POC
[2021-02-24 04:30] VITALS: BP 118/62
[2021-02-24 05:16] LABS: HEMOGLOBIN 8.6 gm/dL (12.0-15.0); MCHC 31.8 g/dL (28.0-37.0); RBC 3.07 mil/uL (4.20-5.00); RDW 17.5 % (10.5-14.5); WBC 13.2 thou/uL (4.0-11.0)
[2021-02-24 06:09] LABS: CALCIUM 8.1 mg/dL (8.5-10.1); CREATININE 1.2 mg/dL (0.6-1.0); MAGNESIUM 1.8 mg/dL (1.8-2.4); POTASSIUM 3.5 mmol/L (3.5-5.1)
[2021-02-24 08:12] VITALS: BP 141/68
[2021-02-24 09:00] VITALS: BP 141/68
--- NOTE | 2021-02-24 09:38 | NUR ---
OSTOMY CARE; AWAKE,ALERT, BUT FORGETFUL, POUCH CHANGED LAST SHAYY BUT OPENING TOO LARGE, REPLACED W/ DAE CUT TO FIT POUCH W/ ADAPT RING UNDER WAFER, STOMA RED VIABLE FLAT W/ SKIN SURFACE, STOMA BRIDGE IN PLACE, MOD AMT LIQ DARK BROWN STOOL NOTED, SKIN TEAR OUTER EDGE LEFT SIDE, TELFA DRSG APPLIED, PERISTOMAL SKIN UNDER WAFER INTACT, COOPERATIVE, SHOWING LITTLE INTEREST IN OSTOMY CARE, ENCOURAGED PARTICIPATION, INFO AND SUPPLIES LEFT AT BS, WILL CONT TO FOLLOW RECOMMENDATIONS; CHANGE POUCH Q 3-4 DAYS AND PRN, EMPTY PRN JEWELRY BEARING MAKER AWARE
--- NOTE | 2021-02-24 11:55 | NUR ---
OSTOMY CARE; PER SURGEON DR MELGAR ORDER TO REMOVE STOMA SUPPORT BRIDGE TODAY, REMOVED W/OUT ISSUES, POUCH INTACT, FINAL ASSEMBLY WORKER AWARE
[2021-02-24] MEDS ORDERED: METOPROLOL TART25 MG PO (14:36)
[2021-02-24] MEDS ORDERED: COLESTID1 GM PO (14:36)
[2021-02-24] MEDS ORDERED: ZOSYN 3.373.375 GM/1 IV (14:40)
--- NOTE | 2021-02-24 15:10 | NUR ---
patient to discharge to [facility]. Faxed orders. chart copied. stretcher van via [facility] between 5-6. Notfied RN, patient and dtr.
--- NOTE | 2021-02-25 13:39 | HC ---
[facility] [place] [address] CONSULTATION Name: MIGUEL LINN Room #: 218-P DIS IN M.R.#: [id number] Admission: 02/11/21 Attend Phys: Bryon Culver MD Discharge: 02/24/21 Date of : 37 Report #: [id number] THIS REPORT FOR: cc: Derrell Hearn,Jah Castaneda MD ~ DOC #: [id number] Jah Coronado MD DATE OF SERVICE: 02/12/2021 WOUND CARE CONSULTATION PATIENT OF: Dr. Hearn. CHIEF COMPLAINT: Sepsis, diarrhea and sacral decubitus ulcer. HISTORY OF PRESENT ILLNESS: This is an 85-year-old white female who is an extremely poor historian, who presented from a care facility for complaints of diarrhea off and on for the past 3 weeks. The patient was felt to be feeling weak and was brought to the Emergency Department for further evaluation. 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 It is unclear what they have been doing to treat this ulceration. The patient herself is unable to give any other associated history. PAST MEDICAL HISTORY: Significant for anxiety, hypertension, restless leg syndrome, recent episodes of diarrhea and the chronic sacral decubitus ulcer. CURRENT MEDICATIONS: Multiple, I reviewed the patient's medication list. DRUG ALLERGIES: None. SOCIAL HISTORY: The patient resides in a long-term care facility. Does not smoke or drink alcohol. FAMILY HISTORY: Not pertinent to current medical condition. REVIEW OF SYSTEMS: Essentially unobtainable due to the patient's altered mental status. PHYSICAL EXAMINATION: VITAL SIGNS: Temperature 36.8, pulse 76, respirations 18, BP 94/54. GENERAL: This is an awake, but not alert white female who is crying out with any type of movement. HEENT: Normocephalic, atraumatic. Mucous membranes are dry. Pupils are round. Sclerae white. NECK: Without JVD. [facility] [address] [place] [address] CONSULTATION Name: MCKENZIE, VIR[place] Room #: 218-P DIS IN M.R.#: [id number] Admission: 02/11/21 Attend Phys: Bryon Culver MD Discharge: 02/24/21 Date of : 37 Report #: [id number] LUNGS: Clear. HEART: Regular. ABDOMEN: Obese, soft, nontender. MUSCULOSKELETAL: Evaluation of the sacrococcygeal region reveals a large sacral decubitus ulcer with palpable bone in the central portion. The wound was a mix of granulation and fibrous slough. There is moderate foul smelling odor. Wound was otherwise intact. Circumferentially, there is undermining approximately 2-3 cm. The patient moves all extremities without difficulty. Bilateral heels are intact. Distal pulses are 1+. NEUROLOGIC: Cranial nerves 2 through 12 are grossly intact. Motor and sensory grossly intact. LABORATORY DATA: White count 16.0, hemoglobin 10.2. Sed rate 82, BUN 38, creatinine 2.1, albumin 2.1. 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 ASSESSMENT: 1. 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 2. Generalized debility. 3. Protein-calorie malnutrition -- severe with albumin 2.1. 4. History of recent diarrhea. 5. Hypertension. PLAN: At this time, we will start Dakin's wet-to-dry dressing to the sacral decubitus ulcer b.i.d. and p.r.n. soilage. We will cover this in ABD. The patient will be placed on the lower lateral surface and turned every 2 hours. We will make sure we have the patient in heel protection boots at all times. We will maximize the patient's oral protein supplementation for continued healing. We will utilize occupational therapy as the patient is able to. Infectious disease is following the patient as well and managing the antibiotics. We will continue all of her current medications. Jah Coronado MD TAS/BRANDY <ELECTRONICALLY SIGNED> By: Jah Coronado MD 02/25/21 1339 1234 0337 Jah Coronado MD /nt
== END 2021-02-24 17:16 | DRG 853 ==
LOC: ER 21:32 → 4W 02-11 01:00 → EROBS 02-11 01:00 → 2N 02-11 01:00 → EROBS 02-11 12:08 → 4W 02-11 18:11 → 2N 02-21 14:55
PROVIDERS: Emergency Medicine; Hospitalist; Internal Medicine; Specialist; Student in an Organized Health Care Education/Training Program; ADMIT Internal Medicine; ATTEND Internal Medicine
DX: A41.9 Sepsis, unspecified organism (principal); L89.154 Pressure ulcer of sacral region, stage 4; N17.0 Acute kidney failure with tubular necrosis; E43 Unspecified severe protein-calorie malnutrition; G92 Toxic encephalopathy; J69.0 Pneumonitis due to inhalation of food and vomit; M46.28 Osteomyelitis of vertebra, sacral and sacrococcygeal region; K62.6 Ulcer of anus and rectum; K56.7 Ileus, unspecified; Z20.822 Contact with and (suspected) exposure to COVID-19; I10 Essential (primary) hypertension; G25.81 Restless legs syndrome; R53.81 Other malaise; K63.5 Polyp of colon; K57.30 Diverticulosis of large intestine without perforation or abscess without bleeding; N18.9 Chronic kidney disease, unspecified; F41.1 Generalized anxiety disorder; E66.01 Morbid (severe) obesity due to excess calories; I48.91 Unspecified atrial fibrillation; R13.10 Dysphagia, unspecified; D64.9 Anemia, unspecified; K52.9 Noninfective gastroenteritis and colitis, unspecified; S30.0XXA Contusion of lower back and pelvis, initial encounter; X58.XXXA Exposure to other specified factors, initial encounter; Z68.39 Body mass index [BMI] 39.0-39.9, adult; Y93.89 Activity, other specified; Y92.89 Other specified places as the place of occurrence of the external cause; Y99.8 Other external cause status
CPT/HCPCS: 10045; 10081; 50010; 50101; 50386; 50403; 57119; 57120; 58574; 62110; 62900; 70005